=== PATIENT | male | born 1990 | race American Indian/Alaskan Native ===

== ENCOUNTER 2021-03-09 03:26 | Emergency (ER) | payer SELFPAY ==
[2021-03-09 04:21] VITALS: BP 125/62
--- NOTE | 2021-03-09 04:38 | Emergency Department Report ---
ED General Adult HPI - General Chief complaint: Dental/Oral Stated complaint: TOOTHACHE/NECK SWELLING/PAINFUL URINATION Source: patient Mode of arrival: Ambulatory Limitations: No Limitations - History of Present Illness Initial comments: Patient is a 30-year-old -[place] male with a history of morbid obesity who presents to the ED with complaint of acute onset persistent painful swollen right mandibular gingiva and severely painful right mandibular premolar and molar toothache for the last 3 days. Patient also complains of painful erythematous maculopapular nonfluctuant rash on bilateral cheeks and chin with posterior cervical lymphadenopathy for the last 1 week. Patient states that he has been taking [id number] medications with no relief. Patient denies dizziness, syncope, sore throat, nausea and vomiting, headache, chest pain, shortness of breath, fever, chills, cough, change in vision, traumatic injury, abdominal pain or back pain. MD Complaint: Right lower premolar and molar toothache with swollen gums; painful rash -: Sudden, week(s) (1) Location: face, mouth Radiation: non-radiation Severity scale (0 -10): 8 Quality: aching, sharp Consistency: constant Improves with: none Worsens with: none Associated Symptoms: denies other symptoms, rash (Painful swollen erythematous maculopapular rash on the cheeks bilaterally). denies: confusion, chest pain, cough, diaphoresis, fever/chills, headaches, loss of appetite, malaise, nausea/vomiting, seizure, shortness of breath, syncope, weakness Treatments Prior to Arrival: none - Related Data Previous Rx's Medication Instructions Recorded Last Taken Type Ondansetron [Zofran Odt] 4 mg PO TID #6 tab.rapdis 03/31/15 Unknown Rx methOCARBAMOL [Robaxin TAB] 500 mg PO BID #20 tab 06/25/15 Unknown Rx Cyclobenzaprine HCl [Flexeril 5 MG 1 tab PO TID PRN #30 tab 11/20/15 Unknown Rx TAB] Clindamycin [Clindamycin CAP] 300 mg PO Q8HR #60 capsule 03/09/21 Unknown Rx Ibuprofen [Motrin 800 MG tab] 800 mg PO Q8HR PRN #30 tablet 03/09/21 Unknown Rx Sulfamethoxazole/Trimethoprim 1 each PO Q12H #20 tablet 03/09/21 Unknown Rx [Bactrim DS TAB] traMADoL [Ultram] 50 mg PO Q6HR PRN #12 tablet 03/09/21 Unknown Rx Allergies Allergy/AdvReac Type Severity Reaction Status Date / Time No Known Allergies Allergy Verified 07/04/16 07:29 ED Review of Systems ROS: Stated complaint: TOOTHACHE/NECK SWELLING/PAINFUL URINATION Other details as noted in HPI Constitutional: denies: chills, fever Eyes: denies: eye pain, eye discharge, vision change ENT: dental pain (Painful swollen right mandibular gingiva; painful right mandibular premolar and molar toothache), other (Bilateral erythematous maculopapular rash on the cheeks and chin). denies: ear pain, throat pain Respiratory: denies: cough, shortness of breath, wheezing Cardiovascular: denies: chest pain, palpitations Endocrine: no symptoms reported Gastrointestinal: denies: abdominal pain, nausea, vomiting, diarrhea Genitourinary: denies: urgency, dysuria Musculoskeletal: denies: back pain, joint swelling, arthralgia Skin: rash (Mild erythematous maculopapular painful rash on the cheeks bilaterally and the chin). denies: lesions Neurological: denies: headache, weakness, paresthesias Psychiatric: denies: anxiety, depression Hematological/Lymphatic: denies: easy bleeding, easy bruising ED Past Medical Hx - Past Medical History Previous Medical History?: Yes Hx Hypertension: No Hx CVA: No Hx Heart Attack/AMI: No Hx Congestive Heart Failure: No Hx Diabetes: No Hx Deep Vein Thrombosis: No Hx Pulmonary Embolism: No Hx GERD: No Hx Liver Disease: No Hx Renal Disease: No Hx Sickle Cell Disease: No Hx Arthritis: No Hx Headaches / Migraines: No Hx Seizures: No Hx Kidney Stones: No Hx Psychiatric Treatment: No Hx Asthma: No Hx COPD: No Hx Tuberculosis: No Hx Dementia: No Hx HIV: No Additional medical history: OBESITY - Surgical History Past Surgical History?: Yes Hx Coronary Stent: No Hx Open Heart Surgery: No Hx Pacemaker: No Hx Internal Defibrillator: No Hx Cholecystectomy: No Hx Appendectomy: No Hx Breast Surgery: No Additional Surgical History: TONSILLECTOMY - Social History Smoking Status: Current Every Day Smoker Substance Use Type: None - Medications Home Medications: Home Medications Medication Instructions Recorded Confirmed Last Taken Type Ondansetron [Zofran Odt] 4 mg PO TID #6 tab.rapdis 03/31/15 Unknown Rx methOCARBAMOL [Robaxin TAB] 500 mg PO BID #20 tab 06/25/15 Unknown Rx Cyclobenzaprine HCl [Flexeril 5 MG 1 tab PO TID PRN #30 tab 11/20/15 Unknown Rx TAB] Clindamycin [Clindamycin CAP] 300 mg PO Q8HR #60 capsule 03/09/21 Unknown Rx Ibuprofen [Motrin 800 MG tab] 800 mg PO Q8HR PRN #30 tablet 03/09/21 Unknown Rx Sulfamethoxazole/Trimethoprim 1 each PO Q12H #20 tablet 03/09/21 Unknown Rx [Bactrim DS TAB] traMADoL [Ultram] 50 mg PO Q6HR PRN #12 tablet 03/09/21 Unknown Rx ED Physical Exam - General Limitations: No Limitations General appearance: alert, in no apparent distress - Head Head exam: Present: atraumatic, normocephalic, normal inspection - Eye Eye exam: Present: normal appearance, PERRL, EOMI Pupils: Present: normal accommodation - ENT ENT exam: Present: mucous membranes moist, TM's normal bilaterally, normal external ear exam, other (Palpable tender and swollen right mandibular gingiva; palpable severe right mandibular premolar and molar teeth tenderness) - Neck Neck exam: Present: normal inspection, full ROM, lymphadenopathy (Swollen, mildly tender posterior cervical lymphadenopathy) - Respiratory Respiratory exam: Present: normal lung sounds bilaterally. Absent: respiratory distress, wheezes, rales, rhonchi, chest wall tenderness, accessory muscle use, decreased breath sounds, prolonged expiratory - Cardiovascular Cardiovascular Exam: Present: regular rate, normal rhythm, normal heart sounds. Absent: systolic murmur, diastolic murmur, rubs, gallop - GI/Abdominal GI/Abdominal exam: Present: soft, normal bowel sounds. Absent: tenderness, guarding, rebound, hyperactive bowel sounds, hypoactive bowel sounds, organomegaly, mass - Extremities Exam Extremities exam: Present: normal inspection, full ROM, normal capillary refill - Back Exam Back exam: Present: normal inspection, full ROM. Absent: tenderness, CVA tenderness (R), CVA tenderness (L), muscle spasm, paraspinal tenderness, vertebral tenderness - Neurological Exam Neurological exam: Present: alert, oriented X3, CN II-XII intact, normal gait, reflexes normal - Psychiatric Psychiatric exam: Present: normal affect, normal mood - Skin Skin exam: Present: warm, dry, intact, normal color, rash (Mild erythematous maculopapular nonfluctuant moderately tender rashes on bilateral cheeks and chin) ED Course Vital Signs 03/09/21 04:20 Temperature 98.2 F Pulse Rate 86 Respiratory 18 Rate Blood Pressure 125/62 O2 Sat by Pulse 98 Oximetry ED Medical Decision Making - Medical Decision Making This is a 30-year-old -[place] male with a history of morbid obesity who presents to the ED with complaint of acute onset persistent painful swollen right mandibular gingiva and severely painful right mandibular premolar and molar toothache for the last 3 days. Patient also complains of painful erythematous maculopapular nonfluctuant rash on bilateral cheeks and chin with posterior cervical lymphadenopathy for the last 1 week. Patient states that he has been taking [id number] medications with no relief. In the ED, patient is alert and oriented x3 and is not in any distress. Patient is hemodynamically stable but appears to be in pain. Patient will discharge home on medications for pain and antibiotics and advised to follow-up with his dentist or primary care physician in 7 to 10 days for reevaluation. Patient is advised return to the ED immediately if symptoms get worse. - Differential Diagnosis Facial folliculitis; dental abscess; gingivitis; dental caries; lymphadenop Critical care attestation.: If time is entered above; I have spent that time in minutes in the direct care of this critically ill patient, excluding procedure time. ED Disposition Clinical Impression: Acute folliculitis, Dental abscess, Chronic gingivitis Disposition: TO HOME OR SELFCARE Is pt being admited?: No Does the pt Need Aspirin: No Condition: Stable Instructions: Dental Abscess, [id number], Trench Mouth, Folliculitis Additional Instructions: Take medication with food, drink plenty of fluids and follow-up with your primary care physician in 7 to 10 days for reevaluation. Return to the ED im mediately if symptoms get worse. Prescriptions: Sulfamethoxazole/Trimethoprim [Bactrim DS TAB] 1 each PO Q12H #20 tablet Clindamycin [Clindamycin CAP] 300 mg PO Q8HR #60 capsule Ibuprofen [Motrin 800 MG tab] 800 mg PO Q8HR PRN #30 tablet PRN Reason: pain/anti-inflammatory/fever traMADoL [Ultram] 50 mg PO Q6HR PRN #12 tablet PRN Reason: Pain Referrals: [facility] [Outside] - 7-10 days Time of Disposition: 04:41 Print Language: DJIBOUTIAN
== END 2021-03-09 05:25 | disposition home or self-care (01) ==
LOC: ED 03:26
DX: L73.9 Follicular disorder, unspecified (principal); K04.7 Periapical abscess without sinus; K05.10 Chronic gingivitis, plaque induced; F17.200 Nicotine dependence, unspecified, uncomplicated; Z98.890 Other specified postprocedural states; Z79.899 Other long term (current) drug therapy
CPT/HCPCS: 99282